=== PATIENT | female | born 1960 ===

== ENCOUNTER 2019-01-16 12:28 | Emergency (ER) | payer MEDICARE ==
[~2019-01-16] VITALS: Ht 162.6 cm; Wt 83.6 kg
[2019-01-16 12:33] VITALS: BP 172/91
== END 2019-01-16 19:07 | disposition left against medical advice (07) ==
LOC: ER 12:30
DX: R52 Pain, unspecified (principal); Z53.21 Procedure and treatment not carried out due to patient leaving prior to being seen by health care provider